=== PATIENT | male | born 1945 | race Two or more races ===

== ENCOUNTER 2016-11-15 08:21 | Day surgery (SDC) | payer OTHER ==
[2016-11-09 12:10] VITALS: BMI 34.7
[2016-11-15] MEDS ORDERED: MIDAZOLAM HCL 2 MG/2 ML SINGLE DOSE VIAL ONE (09:20)
[2016-11-15] MEDS ORDERED: ROPIVACAINE HCL 0.5% 30ML VIAL ONE (09:21)
[2016-11-15] MEDS ORDERED: DEXAMETHASONE SOD PHOSPHATE/PF 10 MG/ML SDV ONE (09:21)
[2016-11-15] MEDS ORDERED: MEPIVACAINE HCL/PF 15 MG/ML ML ONE (09:40)
[2016-11-15] MEDS ORDERED: PROPOFOL 20 ML ONE (10:13)
[2016-11-15] MEDS ORDERED: DEXAMETHASONE SOD PHOSPHATE 4 MG/1 ML VIAL ONE (10:16)
[2016-11-15] MEDS ORDERED: LIDOCAINE HCL/PF 2% SDV 5ML VIAL ONE (10:16)
[2016-11-15] MEDS ORDERED: ceFAZolin SODIUM 1 GM VIAL ONE (10:16)
[2016-11-15] MEDS ORDERED: ETOMIDATE 40 MG/20 ML VIAL IVPUSH ONE (10:16)
[2016-11-15] MEDS ORDERED: ONDANSETRON 4 MG/2 ML VIAL ONE (10:16)
[2016-11-15] MEDS ORDERED: METOPROLOL TARTRATE 5 MG/5 ML VIAL ONE (11:32)
[2016-11-15] MEDS ORDERED: LACTATED RINGERS SOLUTION 1,000 ML IV SCH (13:15)
[2016-11-15] MEDS ORDERED: ONDANSETRON 4 MG/2 ML VIAL IVPUSH PRN (13:20)
[2016-11-15 14:49] VITALS: BP 150/84; PULSE 80; TEMP 98.3
--- NOTE | 2016-11-16 14:05 | OP ---
DATE OF OPERATION: 11/15/2016 PREOPERATIVE DIAGNOSIS: Right rotator cuff tear. POSTOPERATIVE DIAGNOSIS: Right rotator cuff tear. PROCEDURE: Right shoulder arthroscopy with rotator cuff repair, subacromial decompression. SURGEON: Scott Escoto MD FITTING SUPERVISOR: Mel Diez MD whose skillful assistance was necessary for the safe and timely performance of this procedure. Ms. Diez was able to help position the patient, drive the camera, assist in the insertion of orthopaedic hardware, and positioning of the limb during the procedure. This is while the lighting technician was working on the back table. ANESTHESIA: Regional general. POSTOPERATIVE CONDITION: Stable. COMPLICATIONS: None. IMPLANTS: Arthrex SwiveLock x4, SpeedBridge kit. INDICATIONS: This is a pleasant 71-year-old gentleman who had been suffering from many months of right shoulder pain. He was treated initially with conservative measures. He was continuing to have significant pain and dysfunction of his shoulder. MRI demonstrated full-thickness rotator cuff tear. Treatment options including continued nonoperative versus operative management were discussed. The operative risks were reviewed in detail including bleeding, infection, neurovascular injury, need for further surgery, postoperative pain and stiffness, re-rupture of the rotator cuff. We reviewed medical risks such as heart attack, stroke, DVT, PE, and . All of the patient's questions were addressed. He voiced understanding and elected to proceed. DESCRIPTION OF PROCEDURE: The patient was brought to the operating room after administration of a regional block in the preoperative holding area. The patient was then anesthetized. The patient was then positioned in the beach chair position careful to pad all of the bony prominences. Preoperative exam of the right upper extremity demonstrated no limitations in range of motion. The patient was now prepped and draped in the usual sterile fashion. A preoperative dose of antibiotics was given, and the usual time-out procedure was performed. The right upper extremity was now marked out with bony landmarks. A standard posterior portal was marked out and then incised using 11 blade. The arthroscope was then passed into the glenohumeral joint. Here there were no significant arthritic changes. There was mild degenerative fraying of the labrum without tearing. The biceps was absent. Examination of the subscapularis demonstrated no lesions. An anterior portal was now established under spinal needle localization. The subscapularis was probed and found to be stable. Passing the arthroscope back, the superior and infraspinatus demonstrated a full-thickness tear. There was only slight retraction. The arthroscope was now passed into the subacromial space. Here, a lateral portal was established under spinal needle localization. There was dense bursa present. Using electrocautery as well as a 4.5-mm shaver, the bursa was debrided exposing the rotator cuff. Here, the rotator cuff tear was debrided as well. The footprint was debrided of any soft tissue using electrocautery and a shaver and then the superficial layer of cortical bone was debrided as well. The tear was mobilized using a rotator cuff grasper and found to adequately return to the footprint with minimal tension. There was some of a delaminated portion and a deep split as well. At this point, using percutaneous technique, 2 medial row anchors were inserted. The anterior sutures were then passed utilizing a Scorpion with a FiberLink passing to pass both the FiberTape and one of the FiberWire sutures. The 2nd FiberWire suture was passed through the anterior leaf of the tear. This FiberWire was then handtied reducing the anterior leaflet to the tuberosity. The posterior anchor was now passed through the rotator cuff as well using a Scorpion suture passer. The FiberTapes were now cut and independently passed into a crossing pattern. An anterior and then posterior lateral row anchor were inserted maintaining tension on the FiberTapes to maintain the rotator cuff reduced onto the tuberosity. Excellent compression was achieved. Most inner portion of the anterior leaflet was still not securely fashioned, so a FiberWire from the anterolateral anchor was passed through this to provide an additional horizontal mattress suture and then hand tied as well. At this point, the excess sutures were cut and removed. The bony prominences of the subacromial space of which there were significant ones about anteriorly, laterally, and about the AC joint were all debrided to allow for better motion of the anterior cuff. The portals were then sutured using 2-0 Vicryl and 3-0 nylon. Sterile dressings were placed. The patient was extubated and transferred to the recovery room in stable condition. Samantha [id number] MTDD
== END 2016-11-15 14:51 | disposition home or self-care (01) ==
LOC: FASU 08:21
PROVIDERS: ATTEND Orthopaedic Surgery Sports Medicine
PROC: 0LB14ZZ Excision of Right Shoulder Tendon, Percutaneous Endoscopic Approach (ICD-10-PCS; principal; 2016-11-15 11:05)
PROC: 0RNJ4ZZ Release Right Shoulder Joint, Percutaneous Endoscopic Approach (ICD-10-PCS; 2016-11-15 11:05)
DX: M75.101 Unspecified rotator cuff tear or rupture of right shoulder, not specified as traumatic (principal)
CPT/HCPCS: 94760

== ENCOUNTER 2024-04-17 04:20 | Day surgery (SDC) | payer OTHER ==
[2024-04-16 11:40] VITALS: BMI 32.5
[2024-04-17] MEDS ORDERED: LIDOCAINE HCL/PF 1% SDV 5ML VIAL ONE (07:24)
[2024-04-17] MEDS ORDERED: DEXAMETHASONE SOD PHOSPHATE 10 MG/1 ML VIAL ONE (07:24)
[2024-04-17] MEDS ORDERED: SODIUM CHLORIDE 0.9% P/F 10 ML VIAL IJ ONE (07:34)
[2024-04-17] MEDS ORDERED: ACETAMINOPHEN 500 MG TABLET (FP) PO PRN (09:05)
[2024-04-17] MEDS: DEXAMETHASONE SOD PHOSPHATE 10 MG/1 ML VIAL IVPUSH ONE (10:15)
[2024-04-17] MEDS: LIDOCAINE 1% P/F 10 MG/ML VIAL INF ONE (10:15)
[2024-04-17] MEDS: IOHEXOL 180 MG/1 ML ML IJ ONE (10:15)
[2024-04-17 11:31] VITALS: PULSE 88; RESP 22; TEMP 97.5
[2024-04-17 11:55] VITALS: BP 138/66
== END 2024-04-17 11:40 | disposition home or self-care (01) ==
LOC: JASU-SURG 04:20
PROVIDERS: ATTEND Pain Medicine Pain Medicine
PROC: 3E0R3BZ Introduction of Anesthetic Agent into Spinal Canal, Percutaneous Approach (ICD-10-PCS; 2024-04-17)
PROC: 3E0R33Z Introduction of Anti-inflammatory into Spinal Canal, Percutaneous Approach (ICD-10-PCS; principal; 2024-04-17 09:30)
DX: M54.16 Radiculopathy, lumbar region (principal)
CPT/HCPCS: 76000-TC-FY; J1100